=== PATIENT | female | born 1980 | race Caucasian/White ===

== ENCOUNTER 2016-07-06 11:02 | Emergency (ER) | payer OTHER ==
[2016-07-06 11:42] LABS: APPEARANCE HAZY (CLEAR); BILIRUBIN NEGATIVE (NEGATIVE); COLOR YELLOW (YELLOW); GLUCOSE NEGATIVE (NEGATIVE); KETONE NEGATIVE (NEGATIVE); LEUKOCYTE ESTERASE NEGATIVE (NEGATIVE); NITRITE NEGATIVE (NEGATIVE); PROTEIN NEGATIVE (NEGATIVE); SPECIFIC GRAVITY 1.015 (1.005-1.020); UROBILINOGEN NORMAL (NORMAL)
[2016-07-06 11:46] LABS: BASOPHILS 0.5 % (0.0-2.0); EOSINOPHILS 1.5 % (0-7); HEMATOCRIT 43.4 % (36.0-48.0); HEMOGLOBIN 14.8 g/dL (12-16); IMMATURE GRANULOCYTES 0.3 % (0-5); LYMPHOCYTES 21.3 % (15-50); MCHC 34.1 g/dL (31.0-37.0); MCV 93.7 fL (80.0-100.0); MEAN PLATELET VOLUME 9.5 fL (7.4-10.4); MONOCYTES 5.5 % (2-11); NEUTROPHILS 70.9 % (40-80); PLATELET COUNT 248 10x3/uL (130-400); RBC 4.63 10x6/uL (4.00-5.40); RDW 12.4 % (11.5-14.5); WBC 13.2 10x3/uL (4.8-10.8)
[2016-07-06 11:48] LABS: UDS - AMPHET NEGATIVE QUAL (NEGATIVE); UDS - BARB NEGATIVE QUAL (NEGATIVE); UDS - BENZO NEGATIVE QUAL (NEGATIVE); UDS - COCAINE NEGATIVE QUAL (NEGATIVE); UDS - METH NEGATIVE QUAL (NEGATIVE); UDS - OPIATE NEGATIVE QUAL (NEGATIVE); UDS - PCP NEGATIVE QUAL (NEGATIVE); UDS - THC NEGATIVE QUAL (NEGATIVE)
[2016-07-06 12:01] LABS: ALBUMIN 3.9 g/dL (3.4-5.0); ALKALINE PHOSPHATASE 103 U/L (46-116); ALT (SGPT) 23 U/L (10-68); CALC OSMOLALITY 280 mosm/kg (275-300); CALCIUM 8.6 mg/dL (8.5-10.1); CARBON DIOXIDE 24.8 mmol/L (21.0-32.0); CHLORIDE - SERUM 107 mmol/L (98-107); CREATININE - SERUM 0.8 mg/dL (0.6-1.3); GLUCOSE 87 mg/dL (74-106); POTASSIUM - SERUM 3.4 mmol/L (3.5-5.1); SODIUM 142 mmol/L (136-145); UREA NITROGEN 11 mg/dL (7-18); eGFR NON AFRICAN AMERICAN 86 mL/min (90-120)
[2016-07-06 12:03] LABS: ALCOHOL - BLOOD (MEDICAL) < 3.0 mg/dL (0.0-10.0)
[2016-07-06 13:03] LABS: HCG URINE NEGATIVE (NEGATIVE)
== END 2016-07-06 15:35 | disposition short-term general hospital (02) ==
LOC: D.ER 11:02
PROVIDERS: Emergency Medicine; Nurse Practitioner Family
DX: R45.851 Suicidal ideations (principal); F41.9 Anxiety disorder, unspecified; F33.9 Major depressive disorder, recurrent, unspecified; Z63.0 Problems in relationship with spouse or partner